=== PATIENT | female | born 1985 | race African-American/Black ===

== ENCOUNTER 2016-12-24 18:32 | Emergency (ER) | payer MEDICAID, OTHER ==
[~2016-12-24] VITALS: Ht 154.9 cm; Wt 53.5 kg
[~2016-12-24 18:32] MED LIST: BACTDS PO
[2016-12-24 18:58] VITALS: Ht 154.9 cm; Wt 53.5 kg
--- NOTE | 2016-12-24 20:01 | ERD ---
ER Documentation Chief Complaint Date/Time DATE: 12/24/16 TIME: 19:59 Chief Complaint C/O BODY NUMBNESS TODAY. STATES SHE SMOKED WEED 1 HR AGO HPI 31-year-old female presents here in emergency department for complaints of episodes of numbness and tingling all over the body, being tired, been sleepy, sleeping a different hours of the day, for the last one. Patient states that she is having on and off headache, throbbing pain, 4/and scale, accompanying the symptoms. Patient smokes marijuana regularly. Patient does not have any chest pain or palpitations. Patient denies any dizziness. Patient is complaining of headache, throbbing pain, 4/10 scale, accompanying other symptoms. Patient denies any syncopal episodes. Patient denies any nausea or vomiting. Patient denies any chest pain. ROS All systems reviewed and are negative except as per history of present illness. Medications Home Meds Active Scripts Sulfamethoxazole-Trimethoprim* (Bactrim* DS) 800-160 Mg Tab, 1 TAB PO BID for 7 Days, TAB Prov:ROSANGELA NEGRETE PA-C 09/30/15 Allergies Allergies: Coded Allergies: Penicillins (Verified Allergy, Unknown, RASH, 03/15/15) amoxicillin (Verified Allergy, Unknown, RASH, 03/15/15) PMhx/Soc Medical and Surgical Hx: pt denies Surgical Hx Hx Miscellaneous Medical Probl: Yes (melanoma on back 2013) Hx Alcohol Use: No Hx Substance Use: Yes (marijuana) Hx Tobacco Use: No FmHx Family History: No coronary disease, No diabetes, No other Physical Exam Vitals Vital Signs Date Time Temp Pulse Resp B/P Pulse Ox O2 Delivery O2 Flow Rate FiO2 12/24/16 18:58 97.0 81 16 109/62 99 Physical Exam GENERAL: The patient is well developed and appropriate for usual state of health, in no apparent distress. CHEST: Clear to auscultation bilaterally. There are no rales, wheezes or rhonchi. HEART: Regular rate and rhythm. No murmurs, clicks, rubs or gallops. No S3 or S4. ABDOMEN: Soft, nontender and nondistended. Good bowel sounds. No rebound or guarding. No gross peritonitis. No gross organomegaly or masses. No Drew sign or McBurney point tenderness. BACK: No midline or flank tenderness. EXTREMITIES: Equal pulses bilaterally. There is no peripheral clubbing, cyanosis or edema. No focal swelling or erythema. Full range of motion. Grossly neurovascularly intact. NEURO: Alert and oriented. Cranial nerves 2-12 intact. Motor strength in all 4 extremities with 5/5 strength. Sensation grossly intact. Normal speech and gait. Negative Romberg sign. Negative pronator drift. SKIN: There is no apparent rash or petechia. The skin is warm and dry. HEMATOLOGIC AND LYMPHATIC: There is no evidence of excessive bruising or lymphedema. No gross cervical, axillary, or inguinal lymphadenopathy. Results 24 hrs PROCEDURE: CT Head without contrast. CLINICAL INDICATION: Headaches and numbness and tingling TECHNIQUE: The study was performed utilizing a GE 64-slice multidetector CT scanner. Direct spiral axial CT images of the brain were obtained from the vertex to the skull base without contrast. Coronal and sagittal reformat images are provided. The CTDI vol is 39.25 mGy and the DLP is 554.95 mGy-cm. The images were reviewed on a PACS workstation. COMPARISON: No prior studies are available for comparison. FINDINGS: The ventricles and cortical sulci are within normal limits. The watson-white matter differentiation is maintained. No intra or extra-axial fluid collection or mass effect or shift in the midline structures is seen. The visualized paranasal sinuses, mastoid air cells, orbits, and calvarium are unremarkable. IMPRESSION: Unremarkable CT of the head without contrast. RPTAT: HPNM Physician Magali Date Time Electronically viewed and signed by Physician Magali on 12/24/2016 20 :32 / CC: NIKKI ESRRATO NP Procedures/MDM Medical Decision Making: Patient's symptoms is most likely consistent with side effects from marijuana, also from insomnia, nonspecific symptoms at this time. There is low suspicion for neurological emergencies at this time since patients neurologic exam is normal. Patient did not have any altered level consciousness , vomiting, changes in balance or memory and did not have any head injury. Patients CT scan of the head does not show any neurological emergencies at this time. Patient's headache most likely is from stress, can be also from tension headache. Can be also be side effects of marijuana, is advised to do a physical examination with primary care doctor for further evaluation, and symptoms of any emergent conditions at this time. Patient is stable at this time. Low suspicion for cardiopulmonary emergencies at this time. Laboratory testing are not indicated at this time. Departure Diagnosis: Primary Impression: Headache Headache type: unspecified Headache chronicity pattern: acute headache Intractability: not intractable Qualified Code: R51 - Acute nonintractable headache, unspecified headache type Additional Impression: Insomnia Insomnia type: drug-induced Qualified Code: F19.982 - Drug induced insomnia Condition: Stable Patient Instructions: Insomnia, Self-Care for Headaches NIKKI SERRATO NP Dec 24, 2016 20:00
--- NOTE | 2016-12-24 20:32 | RADRPT ---
PROCEDURE: CT Head without contrast. CLINICAL INDICATION: Headaches and numbness and tingling TECHNIQUE: The study was performed utilizing a GE 64-slice multidetector CT scanner. Direct spiral axial CT images of the brain were obtained from the vertex to the skull base without contrast. Cor onal and sagittal reformat images are provided. The CTDI vol is 39.25 mGy and the DLP is 554.95 mGy -cm. The images were reviewed on a PACS workstation. COMPARISON: No prior studies are available for comparison. FINDINGS: The ventricles and cortical sulci are within normal limits. The watson-white matter differentiation i s maintained. No intra or extra-axial fluid collection or mass effect or shift in the midline struc tures is seen. The visualized paranasal sinuses, mastoid air cells, orbits, and calvarium are unrem arkable. IMPRESSION: Unremarkable CT of the head without contrast. RPTAT: HPNM Physician Magali Date Time Electronically viewed and signed by Physician Magali on 12/24/2016 20:32 /
[2016-12-24 21:57] VITALS: BP 121/68; PULSE 77; RESP 16; TEMP 97.3
== END 2016-12-24 21:59 | disposition home or self-care (01) ==
LOC: FTE 18:32
DX: R51 Headache (principal); F19.982 Other psychoactive substance use, unspecified with psychoactive substance-induced sleep disorder
CPT/HCPCS: 70450; Z7502